=== PATIENT | male | born 1975 | race Caucasian/White ===

== ENCOUNTER 2018-10-11 09:29 | Emergency (ER) | payer BC ==
--- NOTE | 2018-10-11 09:35 | UC ---
Ear Complaint HPI - HPI Summary HPI Summary: 43 y/o male presents to the urgent care c/o sinus congestion w/ green nasal discharge and a lot of PND. Pt reports symptoms started with the flu or a common cold about 2 weeks ago. However for the past week symptoms worse and yesterday he developed severe B/L ear pain with a CHANG and sinus pressure bilateral ear pain starting this morning; worse in R ear. He has been taking Ibuprofen PO to alleviate symptoms. Pt denies fever, SOB, dizziness, N/V/D, chest pain, abdominal pain. - History of Current Complaint Stated Complaint: EAR PAIN Time Seen by Provider: 10/11/18 09:34 Hx Obtained From: Patient, Family/Dynamotor Repairer - mother Onset/Duration: Gradual Onset, Lasting Weeks - 2 weeks, Still Present, Worse Since - 2 days Severity Currently: Severe Pain Intensity: 8 - b/L ear pain and sinus pain Pain Scale Used: 0-10 Numeric Aggravating Factors: Other - headache Alleviating Factors: OTC Meds Associated Signs/Symptoms: Positive: Hearing Loss - RT>LF, URI Symptoms - Allergies/Home Medications Allergies/Adverse Reactions: Allergies Allergy/AdvReac Type Severity Reaction Status Date / Time Environmental Allergies Allergy Intermediate Congestion Uncoded 07/06/13 15:01 PMH/Surg Hx/FS Hx/Imm Hx Previously Healthy: Yes Endocrine History: Hypothyroidism - Surgical History Surgical History: Yes Surgery Procedure, Year, and Place: Tumor benign left femur 1987, ear tubes. - Family History Known Family History: Positive: None - Pt denies PMHX - Social History Occupation: Employed Full-time Lives: With Family Substance Use Type: None Review of Systems All Other Systems Reviewed And Are Negative: Yes Constitutional: Positive: Negative Skin: Positive: Negative Eyes: Positive: Negative ENT: Positive: Ear Ache - B/L ear pain, Nasal Discharge - green, Sinus Congestion, Sinus Pain/Tenderness, Other - moderate PND Respiratory: Positive: Cough - dry Cardiovascular: Positive: Negative Gastrointestinal: Positive: Negative Genitourinary: Positive: Negative Motor: Positive: Negative Neurovascular: Positive: Negative Musculoskeletal: Positive: Negative Neurological: Positive: Headache Psychological: Positive: Negative Is Patient Immunocompromised?: No Physical Exam - Summary Physical Exam Summary: Vitals: reviewed General: Well developed, well-nourished obese male patient with NAD. Head and face: Normocephalic and atraumatic, Positive tenderness over the frontal and maxillary sinuses.. Eyes: PERRLA, EOMI x 2. Normal conjunctiva. No eye discharge. ENT: B/L external ear canals clear, B/L TM injected with erythema and bulging out RT>LF. No TM perforation Nose: edematous and erythematous nasal mucosa with with yellowish discharge and erythematous mucosa. Pharynx with erythema, no exudate. Moderate green PND Neck: Supple, no JVD, no carotid bruits and no lymphadenopathy. Lungs: clear, no rales, no rhonchi, no wheezes. CVS: RRR, S1 and S2 present no murmurs or gallops appreciated. Abdomen: soft nontender with positive bowel sounds. Extremities: no edema noted. Neuro: WNL. Skin: warm and dry Triage Information Reviewed: Yes Ear Complaint Course/Dx - Course Course Of Treatment: 43 y/o male presents to the urgent care c/o sinus congestion w/ green nasal discharge and a lot of PND. Pt reports symptoms started with the flu or a common cold about 2 weeks ago. However for the past week symptoms worse and yesterday he developed severe B/L ear pain with a CHANG and sinus pressure, bilateral ear pain starting this morning; worse in R ear. He has been taking Ibuprofen PO to alleviate symptoms. Last dose taken was 2 hrs ago. Pt denies fever, SOB, dizziness, N/V/D, chest pain, abdominal pain. Pt with B/L otitis media and acute bacterial sinusitis on examination. Pt with 2 weeks of symptoms getting worse. Pt Rx Amoxicillin PO, Ibuprofen PO and flonase nasal spray. Discharge instructions explained to Pt. Advised to Return to the clinic or PCP if symptoms do not improve. Pt's BP is elevated today advised to decrease salt in diet, monitor BP and f/u with PCP for further management. Pt understood and agreed with plan of care. - Differential Dx/Diagnosis Differential Diagnosis/HQI/PQRI: Cerumen Impaction, Otitis Externa, Otitis Media , Perforated TM, Pharyngitis, URI, Other - sinusitis Provider Diagnosis: Acute bacterial sinusitis, Acute otitis media, bilateral, Elevated BP without diagnosis of hypertension Discharge - Sign-Out/Discharge Documenting (check all that apply): Patient Departure - D/c home All imaging exams completed and their final reports reviewed: No Studies - Discharge Plan Condition: Stable Disposition: HOME Prescriptions: Amoxicillin PO (*) [Amoxicillin 875 MG (*)] 875 mg PO BID #20 tab Fluticasone NASAL SPRAY 50MCG* [Flonase NASAL SPRAY 50MCG*] 2 spray BOTH NARES DAILY #1 btl HYDROcodone/ACETAMIN 5-325 MG* [[place] 5-325 TAB*] 1 tab PO Q6H PRN #12 tab MDD 1g/4h-4g/day PRN Reason: Pain Ibuprofen TAB* [Motrin TAB* 800 MG] 800 mg PO Q6H PRN #30 tab PRN Reason: Headache Patient Education Materials: Sinusitis (ED), Ear Infection (ED) Referrals: Ángel Tolbert MD [Medical Doctor] - 2 Days Will Neely MD [Primary Care Provider] - 3 Days Additional Instructions: 1- Please increase fluid intake and rest. take full course of antibiotic to avoid resistance 2-Use Flonase as directed to help drain fluid. Also buy saline drops or spray to clear sinuses. 3-Take Ibuprofen PO q6-8hrs prn after meals to alleviates sinus pain and CHANG. 4-Return to the clinic or PCP in 3 days if symptoms do not improve for further management and treatment 5- Your BP is elevated today. please decrease salt in your diet, monitor BP and if it continues to be elevated please f/u with your PCP for further management. - Billing Disposition and Condition Condition: STABLE Disposition: Home
[2018-10-11 09:40] VITALS: BP 156/99
== END 2018-10-11 10:13 | disposition home or self-care (01) ==
LOC: UCEAST 09:29
DX: J01.80 Other acute sinusitis (principal); H66.93 Otitis media, unspecified, bilateral; R03.0 Elevated blood-pressure reading, without diagnosis of hypertension; Z91.09 Other allergy status, other than to drugs and biological substances
CPT/HCPCS: 99202; G0463

== ENCOUNTER 2019-07-19 12:08 | Emergency (ER) | payer BC ==
--- OUTSIDE RECORDS SUMMARY | 2019-07-19 12:57 | XMS REPORT | Continuity of Care Document ---
:1975 External Reference #:[id number] Author Name Josué Jacobo MD Address [address] [place] [address] Care Team Providers Name Role Phone Josué Jacobo MD - Family Care Team Information Umbrella Tipper Hand [phone] Medicine Problems Description No Information Available Social History Type Date Description Comments Sex Unknown Tobacco Use Start: Unknown Nonsmoker Tobacco Use Start: Unknown End: Former Cigarette Smoker Unknown Smoking Status Reviewed: 06/11/19 Former Cigarette Smoker Smokeless Tobacco Current Smokeless Tobacco User, Uses Five Times Daily ETOH Use 1 drink per day Recreational Drug Use Denies Drug Use Tobacco Use Start: Unknown Nonsmoker Exercise Type/Frequency Exercises regularly Allergies, Adverse Reactions, Alerts Description No Known Drug Allergies Medications Active Medications SIG Qnty Indications Ordering Provider Date Levothyroxine Sodium 1 by mouth 30tabs Shelley Colette 06/05/2019 200mcg every day JANET Martines Tablets Immunizations CPT Code Status Date Vaccine Lot # [id number] Given 06/11/2019 Tdap Tetanus, W Pertussis [id number] Given 06/02/2019 Influenza Virus Vaccine, Recombinant Dna, [id number] Hemagglutnin Protein On Vital Signs Date Vital Result Comment 06/11/2019 4:15pm BP Systolic 108 mmHg BP Diastolic 80 mmHg Heart Rate 70 /min Body Temperature 98.1 F Respiratory Rate 16 /min Height 71 inches 5'11" Weight 281.00 lb BMI (Body Mass Index) 39.2 kg/m2 06/02/2019 2:38pm BP Systolic 140 mmHg BP Diastolic 82 mmHg Heart Rate 72 /min Body Temperature 98.3 F Respiratory Rate 16 /min Height 71 inches 5'11" Weight 284.00 lb BMI (Body Mass Index) 39.6 kg/m2 Results Test Date Facility Test Result H/L Range Note Laboratory test 06/02/2019 [facility] TSH <0.03 mIU/L Low 0.50- 6.00 finding Free T4 1.66 ng/dL High 0.75-1.54 Procedures Description No Information Available Medical Devices Description No Information Available Encounters Type Date Location Provider Dx Diagnosis Office Visit 06/02/2019 Main Office Shelley Alvarenga E03.9 Hypothyroidism, 2:30p JANET Martines unspecified M25.561 Pain in right knee Z23 Encounter for immunization Assessments Date Code Description Provider 06/11/2019 Z00.00 Encounter for general adult medical Josué Jacobo MD examination without abnormal findings 06/11/2019 E03.9 Hypothyroidism, unspecified Josué Jacobo MD 06/11/2019 Z23 Encounter for immunization Josué Jacobo MD 06/02/2019 E03.9 Hypothyroidism, unspecified Shelley Martines NP 06/02/2019 M25.561 Pain in right knee Shelley Martines NP 06/02/2019 Z23 Encounter for immunization Shelley Martines NP Plan of Treatment Future Appointment(s):07/27/2019 10:00 am - Josué Jacobo MD at Main Ebcwgb6106/11/2019 - Josué Jacobo MDZ00.00 Encounter for general adult medical examination without abnormal findingsNew Labs:CBC Electronic-[facility], Ordered: 06/11/19Comp Metabolic-[facility], Ordered: Lipid Panel-[facility], Ordered: 06/11/19E03.9 Hypothyroidism, [id number] Encounter for immunizationAllComments:Medication Management Patient Understands medications he's taking? Yes No Are there Barriersto Adherence? Yes No Has the patient been asked about herbal supplements and therapies, and OTC meds? Yes No Functional Status Description No Information Available Mental Status Description No Information Available Referrals Description No Information Available
--- OUTSIDE RECORDS SUMMARY | 2019-07-19 12:57 | XMS REPORT | Continuity of Care Document ---
:1975 External Reference #:[id number] Author Name Shelley Martines NP Address [address] [place] [address] Care Team Providers Name Role Phone Josué Jacobo MD - Family Care Team Information Acid Painter [phone] Medicine Problems Description No Information Available Social History Type Date Description Comments Sex Unknown Tobacco Use Start: Unknown Nonsmoker Tobacco Use Start: Unknown End: Former Cigarette Smoker Unknown Smoking Status Reviewed: 06/02/19 Former Cigarette Smoker Smokeless Tobacco Current Smokeless Tobacco User, Uses Five Times Daily ETOH Use 1 drink per day Recreational Drug Use Denies Drug Use Tobacco Use Start: Unknown Nonsmoker Exercise Type/Frequency Exercises regularly Allergies, Adverse Reactions, Alerts Description No Known Drug Allergies Medications Active Medications SIG Qnty Indications Ordering Provider Date Levothyroxine Sodium 2 by mouth Unknown 125mcg every day Tablets Immunizations CPT Code Status Date Vaccine Lot # [id number] Given 06/02/2019 Influenza Virus Vaccine, Recombinant Dna, [id number] Hemagglutnin Protein On Vital Signs Date Vital Result Comment 06/02/2019 2:38pm BP Systolic 140 mmHg BP Diastolic 82 mmHg Heart Rate 72 /min Body Temperature 98.3 F Respiratory Rate 16 /min Height 71 inches 5'11" Weight 284.00 lb BMI (Body Mass Index) 39.6 kg/m2 Results Test Date Facility Test Result H/L Range Note Laboratory test 06/02/2019 [facility]) TSH <pending> 0.5-5.0 finding Free T4 <pending> 0.75-1.54 Procedures Description No Information Available Medical Devices Description No Information Available Encounters Description No Information Available Assessments Date Code Description Provider 06/02/2019 E03.9 Hypothyroidism, unspecified Shelley Martines NP 06/02/2019 M25.561 Pain in right knee Shelley Martines NP 06/02/2019 Z23 Encounter for immunization Shelley Martines NP Plan of Treatment Future Appointment(s):06/11/2019 4:00 pm - Josué Jacobo MD at Main Pduuho8406/02/2019 - Shelley Martines NPE03.9 Hypothyroidism, unspecifiedComments:recheck labs - has been > 1.5 xoznoS27.561 Pain in right kneeComments:RestIceCompressionElevation NSAIDs PRN pain return if worsening or failure to improve hx of two meniscal tears, referral to sports med for evaluation to get back to active [id number] Encounter for immunizationComments :Your flu vaccination has been administered. This protects you for the fall, winter and spring. It will decrease the likelihood that you will get the flu. If you are unlucky and get the flu, the symptoms will be less severe.AllComments :Medication Management Patient Understands medications he 's taking? Yes No Are there Barriers to Adherence? Yes No Has the patient been asked about herbal supplements and therapies, andOTC meds? Yes No Care Plan1. Patient has been queried about patient's goals/preferences and functional/lifestyle goals at relevant visits. If relevant, describe: na2. Treatment goals as explained to the patient: above3. Are there barriers to meeting treatment goals? Yes No If Yes, please describe:4. Self- Management goals as described to the patient: Yes NoAs always, we strongly encourage a healthy diet and making physical activity a part of your every day life. If you have questions about how or where to start, please contact the office.Follow up:Please schedule a full annual visit at your earliest convenience Last appointment with MD: francisWe have two locations, one on [facility] and one up on [facility]. We frequently offer evening office hours as well as a 24/7 emergency phone service. I strongly suggest signing up for the online portal so you have access to all of your lab results and have online communication between you and your provider right at your fingertips. If you have any questions or concerns feel free to contact our office. Functional Status Description No Information Available Mental Status Description No Information Available Referrals Description No Information Available
[2019-07-19 13:10] VITALS: BP 139/71
--- NOTE | 2019-07-19 13:14 | UC ---
Back Pain HPI - HPI Summary HPI Summary: Patient is a 43yo male presenting with lumbar back pain x3 hours after he was cough and "threw his back out." Patient states he had a cold last week and has a residual cough. States pain is "tight and throbbing constantly" and worse with "any movement." Slightly better when lying completely still. Denies injury or trauma. Denies numbness and tingling. Denies radiating pain. States still able to ambulate, just slowly. Patient states this same pain has happened before when he strained his back but "not this bad." States he took ibuprofen before coming. - History of Current Complaint Stated Complaint: BACK PAIN Time Seen by Provider: 07/19/19 13:02 Hx Obtained From: Patient, Family/Community Organization Worker - Onset/Duration: Sudden Onset, Lasting Hours Severity Initially: Moderate Severity Currently: Mild Pain Intensity: 4 Pain Scale Used: 0-10 Numeric - Allergies/Home Medications Allergies/Adverse Reactions: Allergies Allergy/AdvReac Type Severity Reaction Status Date / Time Environmental Allergies Allergy Intermediate Congestion Uncoded 07/19/19 13:04 PMH/Surg Hx/FS Hx/Imm Hx Endocrine History: Hypothyroidism - Surgical History Surgical History: Yes Surgery Procedure, Year, and Place: Tumor benign left femur 1987, ear tubes. skin graft R hand - Family History Known Family History: Positive: None - Pt denies PMHX - Social History Lives: With Family Alcohol Use: Daily Alcohol Amount: 2 beers/ day Substance Use Type: None Smoking Status (MU): Never Smoked Tobacco Type: Smokeless Tobacco Review of Systems All Other Systems Reviewed And Are Negative: No Respiratory: Positive: Negative Cardiovascular: Positive: Negative Gastrointestinal: Positive: Negative Musculoskeletal: Positive: Decreased ROM, Myalgia - low back Neurological: Negative: Paresthesia, Numbness Physical Exam Triage Information Reviewed: Yes Appearance: Pain Distress, Obese Vital Signs: Initial Vital Signs Temp 97.1 F 07/19/19 13:05 Pulse 58 07/19/19 13:05 Resp 18 07/19/19 13:05 BP 139/71 07/19/19 13:05 Pulse Ox 96 07/19/19 13:05 Vital Signs Reviewed: Yes Eyes: Positive: Conjunctiva Clear ENT: Positive: Hearing grossly normal Neck: Positive: Supple Respiratory Exam: Normal Respiratory: Positive: Lungs clear, Normal breath sounds, No respiratory distress Cardiovascular Exam: Normal Cardiovascular: Positive: RRR Musculoskeletal: Positive: Strength Intact, No Edema, ROM Limited @ - hip flexion/extension d/t pain, Other: - no midline tenderness or tenderness to palpation of lumbar back Neurological Exam: Other - sensation grossly intact Neurological: Positive: Alert Psychological: Positive: Age Appropriate Behavior Skin Exam: Normal - no erythema or ecchymosis Back Pain Course/Dx - Course Course Of Treatment: I treated patient with flexeril here and prescribed for home too. Instructed to continue with symptomatic treatment including heat and stretching. Educated on flexeril and drowsy side effect. Instructed to follow up with pcp if pain persists. Patient voiced understanding and agreed with treatment plan. - Differential Dx/Diagnosis Provider Diagnosis: Spasm of muscle of lower back Discharge ED - Sign-Out/Discharge Documenting (check all that apply): Patient Departure All imaging exams completed and their final reports reviewed: No Studies - Discharge Plan Condition: Stable Disposition: HOME Prescriptions: Cyclobenzaprine TAB* [Flexeril 10 MG TAB*] 10 mg PO BID PRN #14 tab PRN Reason: Spasms - Back Patient Education Materials: Cyclobenzaprine (By mouth), Low Back Strain (ED) Referrals: Will Neely MD [Primary Care Provider] - If Needed Additional Instructions: As discussed, take Flexeril as prescribed for muscle spasms. You received the first dose here. This medication may make you drowsy, so do not drive while taking it. You should rest, heat, stretch, and continue to take ibuprofen and/or tylenol as directed to help alleviate pain symptoms. Refrain from strenuous physical activity until pain has fully resolved. Follow up with your primary care physician if symptoms do not begin to resolve within 5-7 days. - Billing Disposition and Condition Condition: STABLE Disposition: Home
[2019-07-19] MEDS ORDERED: Cyclobenzaprine TAB* 10 MG PO ONE (13:19)
== END 2019-07-19 13:38 | disposition home or self-care (01) ==
LOC: UCEAST 12:08
DX: M62.830 Muscle spasm of back (principal); R05 Cough; Z91.09 Other allergy status, other than to drugs and biological substances
CPT/HCPCS: 99202; A9270-GY; G0463